=== PATIENT | male | born 1955 | race Two or more races ===

== ENCOUNTER 2019-03-08 19:53 | Emergency (ER) | payer OTHER ==
[~2019-03-08] VITALS: Ht 175.3 cm; Wt 79.4 kg
[2019-03-08] MEDS ORDERED: AZOR 5-40 MG T1 EACH (20:08)
[2019-03-08] MEDS ORDERED: LIPITOR20 MG (20:08)
[2019-03-08] MEDS ORDERED: SINGULAIR5 MG (20:09)
[2019-03-08] MEDS ORDERED: CLARITIN10 M1 (20:09)
== END 2019-03-08 23:13 | disposition home or self-care (01) ==
LOC: ER 19:53
DX: N20.0 Calculus of kidney (principal); R10.32 Left lower quadrant pain